=== PATIENT | male | born 1965 | race Caucasian/White ===

== ENCOUNTER 2016-11-07 23:24 | Emergency (ER) | payer SELFPAY ==
[~2016-11-07] VITALS: Ht 165.1 cm; Wt 59.0 kg
[2016-11-08] MEDS ORDERED: ONDANSETRON HCL 4MG/2ML VIAL IV STA (00:02)
[2016-11-08] MEDS ORDERED: DEXT 5%/0.45% NACL 1000ML 1,000 ML IV ONE (00:02)
[2016-11-08 00:23] LABS: BASOPHILS % 0.2 % (0.0-2.0); EOSINOPHILS % 0.5 % (0.0-5.0); HEMATOCRIT. 46.5 % (42.0-52.0); HEMOGLOBIN. 15.9 g/dL (14.0-18.0); LYMPHOCYTES % 15.1 % (20.0-50.0); MEAN CORPUSCULAR HEMOGLOBIN 31.1 pg (28.0-32.0); MEAN CORPUSCULAR HGB CONC 34.3 g/dL (31.0-37.0); MEAN CORPUSCULAR VOLUME 90.7 fL (80.0-94.0); MEAN PLATELET VOLUME 7.3 fl (7.4-10.4); MONOCYTES % 2.8 % (2.0-8.0); NEUTROPHILS % 81.4 % (40.0-76.0); PLATELET 312 x1000/uL (130-400); RED BLOOD CELL COUNT 5.12 mill/uL (4.7-6.1); RED CELL DISTRIBUTION WIDTH 13.5 % (11.6-14.6); WHITE BLOOD COUNT 12.3 x1000/uL (4.5-11.0)
[2016-11-08 00:26] LABS: CHLORIDE 110 mEq/L (98-107); INDEX HEMOLYSI 1 (1-3); INDEX ICTERIC 1 (1-4); INDEX LIPEMIC 1 (1-3)
[2016-11-08 00:38] LABS: ALANINE AMINOTRANSFERASE 35 IU/L (13-61); ALBUMIN 3.9 g/dL (3.4-5.0); ANION GAP 12; CALCIUM 7.3 mg/dL (8.5-10.1); CARBON DIOXIDE 26 mEq/L (21-32); UREA NITROGEN BLOOD 6 mg/dL (7-21); eGFR > 60 mL/min (>60)
[2016-11-08 00:40] LABS: ETHANOL BLOOD 601 mg/dL
[2016-11-08 12:09] VITALS: BP 117/66
== END 2016-11-08 12:22 | disposition home or self-care (01) ==
LOC: ER 23:25
DX: F10.129 Alcohol abuse with intoxication, unspecified (principal); R40.0 Somnolence; Y90.8 Blood alcohol level of 240 mg/100 ml or more
CPT/HCPCS: 36415; 70450; 80053; 85025; 96361; 96374; 99285; G0482; J2405; J3490; Z7610

== ENCOUNTER 2016-12-29 18:05 | Emergency (ER) | payer SELFPAY ==
[~2016-12-29] VITALS: Ht 165.1 cm; Wt 60.0 kg
[2016-12-29] MEDS ORDERED: LORAZEPAM 1MG TABLET PO ONE (20:00)
[2016-12-30 05:50] VITALS: BP 118/74
== END 2016-12-30 05:55 | disposition home or self-care (01) ==
LOC: ER 19:23
DX: F10.129 Alcohol abuse with intoxication, unspecified (principal)
CPT/HCPCS: 36415; 99283; G0482; Z7610

== ENCOUNTER 2017-04-29 22:18 | Emergency (ER) | payer SELFPAY ==
[~2017-04-29] VITALS: Ht 165.1 cm; Wt 72.0 kg
[2017-04-29] MEDS ORDERED: SODIUM CHLORIDE 0.9% 1,000 ML IV ONE (23:08)
[2017-04-29] MEDS ORDERED: ONDANSETRON HCL 4MG/2ML VIAL IV STA (23:08)
[2017-04-29] MEDS ORDERED: LORAZEPAM 2MG/ML CPJ IV ONE (23:45)
[2017-04-30 00:20] LABS: BASOPHILS % 0.2 % (0.0-2.0); EOSINOPHILS % 0.2 % (0.0-5.0); HEMATOCRIT. 46.3 % (42.0-52.0); HEMOGLOBIN. 16.1 g/dL (14.0-18.0); LYMPHOCYTES % 21.9 % (20.0-50.0); MEAN CORPUSCULAR HEMOGLOBIN 31.9 pg (28.0-32.0); MEAN CORPUSCULAR VOLUME 91.8 fL (80.0-94.0); MEAN PLATELET VOLUME 7.3 fl (7.4-10.4); MONOCYTES % 4.8 % (2.0-8.0); NEUTROPHILS % 72.9 % (40.0-76.0); PLATELET 340 x1000/uL (130-400); RED BLOOD CELL COUNT 5.04 mill/uL (4.7-6.1); RED CELL DISTRIBUTION WIDTH 14.5 % (11.6-14.6)
[2017-04-30 00:23] LABS: CHLORIDE 111 mEq/L (98-107)
[2017-04-30 00:33] LABS: CARBON DIOXIDE 28 mEq/L (21-32)
[2017-04-30 00:36] LABS: ETHANOL BLOOD 399 mg/dL
[2017-04-30 00:49] LABS: HEPATITIS B SURFACE ANTIGEN NEGATIVE
[2017-04-30 11:23] VITALS: BP 119/61
== END 2017-04-30 11:43 | disposition home or self-care (01) ==
LOC: ER 22:23
DX: T51.0X1A Toxic effect of ethanol, accidental (unintentional), initial encounter (principal); G92 Toxic encephalopathy; F10.129 Alcohol abuse with intoxication, unspecified; Y90.8 Blood alcohol level of 240 mg/100 ml or more; Y93.89 Activity, other specified; Y92.410 Unspecified street and highway as the place of occurrence of the external cause
CPT/HCPCS: 36415; 70450; 80053; 85025; 96361; 96374; 96375; 99285; G0482; J2060; J2405; J7030; Z7610